=== PATIENT | female | born 1965 | race Caucasian/White ===

== ENCOUNTER → 2019-11-20 16:54 | Outpatient (CLI) | payer OTHER, BC, SELFPAY ==
--- NOTE | ~2019-11-20 | XR_ITS ---
EXAMINATION: XR knee LT 2V DATE: 11/20/2019 17:09 INDICATION: Left knee pain. TECHNIQUE: 2 views of left knee were obtained. COMPARISON: None. FINDINGS: Bone alignment is normal. No fracture. Joint spaces are normal. There is a small knee joint effusion. IMPRESSION: 1. Small left knee joint effusion. Reviewed, dictated and finalized at location A. [employer]
== END ==
PROVIDERS: PCP Family Medicine; Visit Provider Family Medicine
DX: M25.462 Effusion, left knee (principal)
CPT/HCPCS: 73560

== ENCOUNTER → 2021-03-26 12:57 | Outpatient (CLI) | payer OTHER, BC, SELFPAY ==
--- NOTE | ~2021-03-26 | MM_ITS ---
EXAMINATION: MM screening [facility] BI w daphnie HISTORY: Screening TECHNIQUE: Craniocaudal and mediolateral oblique 3-D tomosynthesis images were obtained and synthetic 2-D images were generated. CAD analysis was submitted and interpreted. COMPARISON: Comparison to multiple prior studies sequentially, with oldest reviewed study dated 12/14. BREAST PARENCHYMAL COMPOSITION: There are scattered areas of fibroglandular density. FINDINGS: Stable benign-appearing left breast mass in the upper outer quadrant. There is no evidence of suspicious mass, calcification, or architectural distortion to suggest malignancy in either breast . There has been no suspicious interval change. IMPRESSION: 1. No mammographic evidence of malignancy. 2. Recommend routine screening mammography in one year. BI-RADS Category 2: Benign finding(s). Reviewed, dictated and finalized at location A.
== END ==
PROVIDERS: PCP Family Medicine
DX: Z12.31 Encounter for screening mammogram for malignant neoplasm of breast (principal)
CPT/HCPCS: 77063; 77067

== ENCOUNTER → 2021-04-21 00:36 | Outpatient (CLI) | payer OTHER, BC, SELFPAY ==
[2021-04-21 20:36] LABS: SARS-CoV-2 RNA PCR Negative
== END ==
PROVIDERS: PCP Family Medicine; Visit Provider Internal Medicine Gastroenterology
DX: Z01.812 Encounter for preprocedural laboratory examination (principal); Z20.822 Contact with and (suspected) exposure to COVID-19
CPT/HCPCS: C9803; U0003; U0005

== ENCOUNTER 2021-04-24 00:31 | Day surgery (SDC) | payer OTHER, BC, SELFPAY ==
[2021-04-08 14:46] VITALS: BMI 32.5
[2021-04-24 06:54] VITALS: BP 117/78; PULSE 77; RESP 18; TEMP 36.4; O2SAT 95
[2021-04-24] MEDS: LACTATED RINGERS 1,000 ML 150 ML IV CONT (07:05)
--- NOTE | 2021-04-24 07:26 | PM.HPGS ---
History of Present Illness History of Present Illness Consent: Risks, benefits, and alternatives have been discussed and questions answered. Patient agrees to proceed with procedure. Chief complaint: change in bowel habits, Rectal Bleeding Narrative: Tiffany Adams is a 55 year old female with a change in bowel habits. She also has seen blood in her stools lately. Times her stools are very soft and she needs to wipe repeatedly. Review of Systems Review of Systems: All systems reviewed & are unremarkable except as noted in HPI and below PMFSH Past Medical History Medical History Chronic renal insufficiency, stage III (moderate) Depression Hematochezia Hypertension Hypothyroidism Surgical History Surgical History H/O hernia repair Family History Family History Mother Colon polyp Hypertension Migraines Brain aneurysm Father Acute myocardial infarction Hypothyroidism Other Diabetes mellitus Family history of allergic disorder Family history of malignant neoplasm Family history of tuberculosis Social History Social History Smoking packs per day: 1 Smoking cigarettes per day: 20.0 Years smoked: 37 Smoking pack-years: 37.00 Smoking status: Former smoker Tobacco type: cigarettes Second hand tobacco smoke exposure: No Smoking end date: 04/25/18 Alcohol intake: current Alcohol use details: socially Substance use: never Substance use type: does not use Living arrangements: with family Gender identity (if verbalized by the patient): Female Spiritual care concerns: No Meds Home Medications and Allergies Home Medications Medication Instructions Recorded Confirmed Type amlodipine 5 mg tablet 5 mg PO DAILY 08/29/19 04/24/21 History norethindrone acetate 5 mg tablet 5 mg PO DAILY 08/29/19 04/24/21 History diclofenac sodium 1 % topical gel See Rx Instructions .ROUTE 01/23/20 04/24/21 Rx .COMPLEX #100 gm simvastatin 20 mg tablet 20 mg PO DAILY #90 tablet 06/16/20 04/24/21 Rx escitalopram oxalate 20 mg tablet 20 mg PO DAILY #90 tablet 08/12/20 04/24/21 Rx solifenacin 5 mg tablet 5 mg PO DAILY #90 tablet 09/01/20 04/24/21 Rx albuterol sulfate 90 mcg/actuation 1 puff INHALATION Q4H PRN #18 g 10/03/20 04/24/21 Rx aerosol inhaler cetirizine 5 mg tablet 5 mg PO DAILY PRN 02/11/21 04/24/21 History multivitamin 1 tablet PO DAILY 02/11/21 04/24/21 History levothyroxine 50 mcg PO DAILY 04/08/21 04/24/21 History Allergies Allergy/AdvReac Type Severity Reaction Status Date / Time No Known Allergies Allergy Verified 04/24/21 06:49 Vital Signs Vital Signs - 24 hr 04/24/21 06:54 Temperature 36.4 C Pulse Rate 77 Respiratory Rate 18 Blood Pressure 117/78 Pulse Oximetry 95 Exam Resp: Auscultation: clear to auscultation bilaterally Cardio: Rate: regular rate Rhythm: regular rhythm GI: GI Palp: Yes Soft to palpation and No Tenderness to palpation present (GI) Assessment and Plan Assessment and plan (1) Blood in stool: Code(s): K92.1 - Melena Status: Acute Assessment and Plan: Colonoscopy with possible biopsy or polypectomy or cautery or injection of substances.
--- NOTE | 2021-04-24 07:48 | WPDANESEPPF ---
Anes - Initial Pre Proc Eval Procedure: Operation Date: 04/24/21 08:00 Proposed Procedures p Colonoscopy - Miguel Angel Maria MD Date/Time: 04/24/21 07:48 Surgeon: Miguel Angel Maria MD Pre Op Diagnosis: change in bowel habits, Rectal Bleeding Patient Data Age: 55 Gender: F Height: 1.63 m Weight: 83.3 kg Last Vital Signs Temp 97.6 F 04/24/21 06:54 Pulse 77 04/24/21 06:54 Resp 18 04/24/21 06:54 BP 117/78 04/24/21 06:54 Pulse Ox 95 04/24/21 06:54 Allergies Allergy/AdvReac Type Severity Reaction Status Date / Time No Known Allergies Allergy Verified 04/24/21 06:49 Home Medications Medication Instructions Recorded Confirmed Type amlodipine 5 mg tablet 5 mg PO DAILY 08/29/19 04/24/21 History norethindrone acetate 5 mg tablet 5 mg PO DAILY 08/29/19 04/24/21 History diclofenac sodium 1 % topical gel See Rx Instructions .ROUTE 01/23/20 04/24/21 Rx .COMPLEX #100 gm simvastatin 20 mg tablet 20 mg PO DAILY #90 tablet 06/16/20 04/24/21 Rx escitalopram oxalate 20 mg tablet 20 mg PO DAILY #90 tablet 08/12/20 04/24/21 Rx solifenacin 5 mg tablet 5 mg PO DAILY #90 tablet 09/01/20 04/24/21 Rx albuterol sulfate 90 mcg/actuation 1 puff INHALATION Q4H PRN #18 g 10/03/20 04/24/21 Rx aerosol inhaler cetirizine 5 mg tablet 5 mg PO DAILY PRN 02/11/21 04/24/21 History multivitamin 1 tablet PO DAILY 02/11/21 04/24/21 History levothyroxine 50 mcg PO DAILY 04/08/21 04/24/21 History Patient hx anesthesia problems: none Family hx anesthesia problems: none PMFSH Past Medical History Medical History Chronic renal insufficiency, stage III (moderate) Depression Hematochezia Hypertension Hypothyroidism Surgical History Surgical History H/O hernia repair Family History Family History Mother Colon polyp Hypertension Migraines Brain aneurysm Father Acute myocardial infarction Hypothyroidism Other Diabetes mellitus Family history of allergic disorder Family history of malignant neoplasm Family history of tuberculosis Social History Social History Smoking packs per day: 1 Smoking cigarettes per day: 20.0 Years smoked: 37 Smoking pack-years: 37.00 Smoking status: Former smoker Tobacco type: cigarettes Second hand tobacco smoke exposure: No Smoking end date: 04/25/18 Alcohol intake: current Alcohol use details: socially Substance use: never Substance use type: does not use Living arrangements: with family Gender identity (if verbalized by the patient): Female Spiritual care concerns: No Anes - Eval Final PreProcedure Day of Procedure 04/24/21 07:48 Patient weight: overweight Heart: regular rate and rhythm Lungs: clear to auscultation Airway: Mallampati scale class II Neurological: alert and oriented Last oral intake: >/= 8 hours ASA classification: III Emergent: no Anesthetic plan: proceed Anesthesia type and monitoring: general GIVS and standard monitoring Informed Consent: The patient's anesthetic plan and its attendant risks and benefits were discussed with the patient/family/POA. Questions were solicited and answers provided to the satisfaction of the patient/family/POA.
[2021-04-24 08:14] VITALS: BP 96/61; PULSE 66; RESP 20; O2SAT 97
[2021-04-24 08:24] VITALS: BP 108/73; PULSE 66; RESP 20; O2SAT 97
[2021-04-24 08:34] VITALS: BP 120/73; PULSE 60; RESP 20; O2SAT 98
== END 2021-04-24 08:48 | disposition home or self-care (01) ==
PROVIDERS: PCP Family Medicine; Visit Provider Internal Medicine Gastroenterology
PROC: 0DJD8ZZ Inspection of Lower Intestinal Tract, Via Natural or Artificial Opening Endoscopic (ICD-10-PCS; CPT 45378; principal; 2021-04-24 08:00)
DX: K92.1 Melena (principal); R19.4 Change in bowel habit; K64.4 Residual hemorrhoidal skin tags; K64.8 Other hemorrhoids; K63.5 Polyp of colon; Z79.51 Long term (current) use of inhaled steroids; F32.9 Major depressive disorder, single episode, unspecified; E03.9 Hypothyroidism, unspecified; I12.9 Hypertensive chronic kidney disease with stage 1 through stage 4 chronic kidney disease, or unspecified chronic kidney disease; N18.30 Chronic kidney disease, stage 3 unspecified; Z87.891 Personal history of nicotine dependence
CPT/HCPCS: 45385; 45381; 45380; 88305; C9803; J2370; J2704; J7120; U0003; U0005

== ENCOUNTER 2021-06-30 09:37 | Outpatient (CLI) | payer OTHER, BC, SELFPAY ==
--- NOTE | 2021-06-30 11:09 | ECG_ITS ---
Measurements Intervals [place] Rate: 68 P: 64 CO: 170 QRS: 42 QRSD: 82 T: 44 QT: 389 QTc: 415 Interpretive Statements SINUS RHYTHM POSSIBLE LEFT ATRIAL ENLARGEMENT BASELINE ARTIFACT- I, II, III, AVR, AVL, AVF, V1-V3 BORDERLINE ECG Electronically Signed On 06-30-2021 11:48:12 CDT by Trevor Mejia D.O.
[2021-06-30 11:27] LABS: Hematocrit 45.4 % (37.0-47.0)
[2021-06-30 11:47] LABS: INR 0.9; Prothrombin Time 11.9 Seconds (11.1-14.7)
[2021-06-30 11:48] LABS: Anion Gap 10 mmol/L (8-16); Blood Urea Nitrogen 23 mg/dL (7-17); Calcium 10.4 mg/dL (8.4-10.2); Carbon Dioxide 30 mmol/L (22-30); Chloride 104 mmol/L (98-107); Estimated Glomerular Filt Rate 42; Glucose 108 mg/dL (65-110); Partial Thromboplastin Time 28.6 SECONDS (22.3-36.8); Potassium 4.1 mmol/L (3.4-5.0); Sodium 144 mmol/L (137-145)
== END 2021-06-30 09:38 | disposition home or self-care (01) ==
LOC: ANHSURGERY 09:42
PROVIDERS: Anesthesiology; PCP Family Medicine; Visit Provider Surgery
DX: Z01.818 Encounter for other preprocedural examination (principal); K63.5 Polyp of colon; I10 Essential (primary) hypertension
CPT/HCPCS: 36415; 80048; 85014; 85018; 85610; 85730; 86850; 86900; 86901; 93005

== ENCOUNTER 2021-07-06 16:00 | Inpatient (IN) | payer OTHER, BC, SELFPAY ==
[2021-06-30 10:10] VITALS: BP 128/83; PULSE 81; RESP 18; TEMP 37.5; O2SAT 96; BMI 31.1
[2021-07-06] VITALS (15 sets, daily range): BP systolic 86–127; BP diastolic 48–74; PULSE 68–84; RESP 14–20; TEMP 36.2–37.1; O2SAT 90–100
[2021-07-06] MEDS: ACETAMINOPHEN 500 MG TABLET 1000 MG PO ×2 (10:10→18:24)
[2021-07-06] MEDS: LACTATED RINGERS 1,000 ML 30 ML IV CONT ×2 (10:32→14:20)
[2021-07-06] MEDS: KETOROLAC 15 MG/ML VIAL (*BKC) IV PUSH (10:33)
--- NOTE | 2021-07-06 11:20 | PM.IMHP ---
H&P: HPI History of Present Illness Date/Time: 07/06/21 11:20 Chief Complaint: Cecal polyp Narrative: 56 yo woman presents for right hemicolectomy. She recently had a colonoscopy and a large polyp was identified. This was too large to remove endoscopically so she now is presenting for surgical resection. Review of Systems Review of Systems: All systems reviewed & are unremarkable except as noted in HPI and below Constitutional: Constitutional: Denies chills, Denies fever(s), Denies headache(s) and Denies weight loss Eyes: Eyes: Denies change in vision ENT: Denies dizziness, Denies headache(s), Denies neck mass and Denies throat swelling Cardiovascular: Cardiovascular: Denies chest pain, Denies lightheadedness and Denies dyspnea Respiratory: Respiratory: Denies cough, Denies dyspnea and Denies wheezing Gastrointestinal: Gastrointestinal: Denies abdominal pain, Denies change in bowel habits, Denies nausea and Denies vomiting Genitourinary: Genitourinary: Denies hematuria and Denies dysuria Musculoskeletal: Musculoskeletal: Reports as per HPI Integumentary/Breasts: Skin/Breast: Reports as per HPI Neurologic: Denies dizziness and Denies headache(s) Allergic/Immunologic: Allergic/Immunologic: Denies throat swelling and Denies wheezing PMFSH Past Medical History Medical History Asthma Chronic renal insufficiency, stage III (moderate) Depression Hematochezia High cholesterol History of blood transfusion Hypertension Hypothyroidism Surgical History Surgical History H/O hernia repair S/P cataract extraction S/P excision of lipoma Family History Family History Mother Colon polyp Hypertension Migraines Brain aneurysm Father Acute myocardial infarction Hypothyroidism Other Diabetes mellitus Family history of allergic disorder Family history of malignant neoplasm Family history of tuberculosis Social History Social History Smoking packs per day: 1 Smoking cigarettes per day: 20.0 Years smoked: 30 Smoking pack-years: 30.00 Smoking status: Former smoker Tobacco type: cigarettes Second hand tobacco smoke exposure: No Smoking end date: 04/25/18 Alcohol intake: current Alcohol use details: socially Substance use: never Substance use type: does not use Living arrangements: with family Additional living arrangements comments: HUSB AND SON Gender identity (if verbalized by the patient): Female Spiritual care concerns: No Meds Home Medications and Allergies Home Medications Medication Instructions Recorded Confirmed Type amlodipine 5 mg tablet 5 mg PO QAM 08/29/19 07/06/21 History multivitamin 1 tablet PO DAILY 02/11/21 07/06/21 History levothyroxine 50 mcg PO QAM 04/08/21 07/06/21 History albuterol sulfate [Ventolin HFA] 2 puff INHALATION Q4H PRN 06/30/21 06/30/21 History cetirizine [Zyrtec] 10 mg PO DAILY 06/30/21 07/06/21 History diclofenac sodium 1 ea TOPICAL QID PRN 06/30/21 07/06/21 History escitalopram oxalate [Lexapro] 20 mg PO QAM 06/30/21 07/06/21 History omeprazole 20 mg PO DAILY 06/30/21 07/06/21 History simvastatin 20 mg PO QAM 06/30/21 07/06/21 History solifenacin [Vesicare] 5 mg PO QAM 06/30/21 07/06/21 History Allergies Allergy/AdvReac Type Severity Reaction Status Date / Time No Known Allergies Allergy Verified 07/06/21 10:11 Vital Signs Vital Signs - 24 hr 07/06/21 10:45 Temperature 37.1 C Pulse Rate 68 Respiratory Rate 16 Blood Pressure 101/62 Pulse Oximetry 94 Exam Const: General: no acute distress and alert Orientation/consciousness: patient oriented x3 HENMT: Head: normocephalic and atraumatic Ears: hearing grossly normal bilaterally General nose exam: Normal nares present
--- NOTE | 2021-07-06 11:22 | WPDHPUPDATE1 ---
History and Physical Update Update Date/Time: 07/06/21 11:22 History and Physical has been reviewed, including an updated exam of the patient. There are NO changes in the patient's condition. Risks, benefits, and alternatives have been discussed and questions answered. Patient agrees to proceed with procedure.
--- NOTE | 2021-07-06 11:44 | WPDANESEPPF ---
Anes - Initial Pre Proc Eval Procedure: Operation Date: 07/06/21 12:00 Proposed Procedures p Hand Assisted Laparoscopic Hemicolectomy - Ramos Wallace DO Date/Time: 07/06/21 11:44 Surgeon: Ramos Wallace DO Pre Op Diagnosis: Cecal polyp Patient Data Age: 56 Gender: F Height: 1.63 m Weight: 81.8 kg Last Vital Signs Temp 37.1 C 07/06/21 10:45 Pulse 68 07/06/21 10:45 Resp 16 07/06/21 10:45 BP 101/62 07/06/21 10:45 Pulse Ox 94 07/06/21 10:45 Allergies Allergy/AdvReac Type Severity Reaction Status Date / Time No Known Allergies Allergy Verified 07/06/21 10:11 Home Medications Medication Instructions Recorded Confirmed Type amlodipine 5 mg tablet 5 mg PO QAM 08/29/19 07/06/21 History multivitamin 1 tablet PO DAILY 02/11/21 07/06/21 History levothyroxine 50 mcg PO QAM 04/08/21 07/06/21 History albuterol sulfate [Ventolin HFA] 2 puff INHALATION Q4H PRN 06/30/21 06/30/21 History cetirizine [Zyrtec] 10 mg PO DAILY 06/30/21 07/06/21 History diclofenac sodium 1 ea TOPICAL QID PRN 06/30/21 07/06/21 History escitalopram oxalate [Lexapro] 20 mg PO QAM 06/30/21 07/06/21 History omeprazole 20 mg PO DAILY 06/30/21 07/06/21 History simvastatin 20 mg PO QAM 06/30/21 07/06/21 History solifenacin [Vesicare] 5 mg PO QAM 06/30/21 07/06/21 History Patient hx anesthesia problems: none Family hx anesthesia problems: none Results Review: All pre-operative results and documents have been reviewed as part of the pre-operative evaluation. [facility] Past Medical History Medical History Asthma Chronic renal insufficiency, stage III (moderate) Depression Hematochezia High cholesterol History of blood transfusion Hypertension Hypothyroidism Surgical History Surgical History H/O hernia repair S/P cataract extraction S/P excision of lipoma Family History Family History Mother Colon polyp Hypertension Migraines Brain aneurysm Father Acute myocardial infarction Hypothyroidism Other Diabetes mellitus Family history of allergic disorder Family history of malignant neoplasm Family history of tuberculosis Social History Social History Smoking packs per day: 1 Smoking cigarettes per day: 20.0 Years smoked: 30 Smoking pack-years: 30.00 Smoking status: Former smoker Tobacco type: cigarettes Second hand tobacco smoke exposure: No Smoking end date: 04/25/18 Alcohol intake: current Alcohol use details: socially Substance use: never Substance use type: does not use Living arrangements: with family Additional living arrangements comments: HUSB AND SON Gender identity (if verbalized by the patient): Female Spiritual care concerns: No Anes - Eval Final PreProcedure Day of Procedure 07/06/21 11:44 Patient weight: obese Heart: regular rate and rhythm Lungs: decreased breath sounds Airway: Mallampati scale class II Neurological: alert and oriented Last oral intake: >/= 8 hours ASA classification: III Emergent: no Anesthetic plan: proceed Anesthesia type and monitoring: general ETT and standard monitoring Results Review: All pre-operative results and documents have been reviewed as part of the pre-operative evaluation. Informed Consent: The patient's anesthetic plan and its attendant risks and benefits were discussed with the patient/family/POA. Questions were solicited and answers provided to the satisfaction of the patient/family/POA.
[2021-07-06] MEDS: metroNIDAZOLE 500 MG/ISO 100ML 500 MG/100 ML BAG 100 MG IVPB (12:22)
[2021-07-06] MEDS: ceFAZolin 2 GM/D5W 50 ML 2 GM/50 ML BAG IVPB (12:34)
--- NOTE | 2021-07-06 14:25 | W.PM.PROC2 ---
Procedure Note - Detailed Date of Procedure 07/06/21 Pre-op Diagnosis Cecal polyp Post-op Diagnosis same Procedure Performed Hand assisted laparoscopic right hemicolectomy with ileocolic anastomosis Surgeon Ramos Wallace, DO Anesthesia general and local (Exparel) Indications This is a 56-year-old woman who presented with a large cecal polyp. She had blood in her stool and therefore underwent colonoscopy with Dr. Maria on 04/24/2021. A large cecal polyp was identified. This was biopsied and tattooed. Pathology showed evidence of tubulovillous adenoma. Discussions were made with the patient about treatment options and decision was made to proceed with hand assisted laparoscopic right hemicolectomy. Findings Hand assisted laparoscopic right hemicolectomy was performed. Patient had a prior history of epigastric hernia repair with mesh, therefore I chose to enter the abdomen laparoscopically in the left upper quadrant. There were many omental adhesions up to the old mesh. These adhesions were carefully taken down using LigaSure bipolar cautery. Once I was able to see the abdominal wall, I was then able to place my hand port in the periumbilical region. I did have to cut through the inferior edge of the mesh for a distance of about 3 cm. I then proceeded with right hemicolectomy. The tattooed region was identified right at the cecum. A high ligation of the ileocolic vessels was performed. A [id number] stapled ileocolic anastomosis was then performed. Description of Procedure Procedure as well as risks benefits and alternatives were explained to the patient. Written consent was obtained and placed in chart prior to procedure. Patient was brought back to surgical suite. She was placed supine on operating table. Time-out was done to confirm patient procedure. She was then intubated by the anesthesia department. Her abdomen was prepped and draped in sterile fashion using chlorhexidine prep. A 5 mm incision was made in the left upper quadrant and a 5 mm Optiview trocar was advanced through the abdominal layers under direct visualization. Once inside the abdominal cavity, carbon dioxide insufflation was used to create a pneumoperitoneum. The abdomen was inspected. There were adhesions throughout the entire mid abdomen, but the left lateral abdomen appeared free of adhesions. Another 5 mm incision was made in the left lower quadrant a 5 mm trocar was inserted under direct visualization. The omental adhesions were taken down carefully using LigaSure bipolar cautery. I was then able to identify the abdominal wall in the midline. A 7 centimeter vertical incision was made centered on the umbilicus using a 15 blade scalpel. Electrocautery was used for hemostasis and for dissection down through Christian's fascia. The linea alba was identified, and incised using electrocautery. Two Pamela clamps were used to lift the fascia anteriorly, and the peritoneum was then entered using electrocautery. The abdomen was inspected and no acute abnormalities were noted. The wound protector was placed at this incision, and the GelPort was applied. The tattooed region was identified on the cecum, and no other abnormalities were noted. The patient was placed in Trendelenburg position and rotated slightly to the left. A 5 millimeter incision was made in the lower midline and a 5 millimeter trocar was inserted under direct visualization. Another 5 millimeter incision was made in the left lower quadrant, and a 5 millimeter trocar was inserted under direct visualization. A transversus abdominis plane block with Exparel was performed under laparoscopic visualization bilaterally. After carefully inspecting the abdominal cavity, I began my dissection from a medial to lateral direction along the ileocolic pedicle. The cecum was tented anteriorly and laterally and this allowed me to visualize the ileocolic pedicle. The medial side and inferior side of the peritoneum was scored us
--- NOTE | 2021-07-06 14:37 | SUR.PHASEI ---
1428; DR GOSS IN PACU. SHOWED HIM PT'S ABDOMEN, ROUNDED BUT SOFT.
[2021-07-06] MEDS: LACTATED RINGERS 1,000 ML 100 ML IV CONT (18:24)
[2021-07-06] MEDS: MORPHINE SULFATE (*CRX) 2 MG/ML INJ IV PUSH (18:25)
--- NOTE | 2021-07-06 18:41 | ADMGEN ---
This patient, Tiffany Faith [facility], was admitted to 2 Medical Room 246-01. Patient/family oriented to hospital policies and general routines including ID bracelet, bed and alarms, visiting hours, pain management, procedures, bathroom and other care routines, personal items, smoking policy, room service/diet, and visiting hours. Information on how to activate the Rapid Response Team has been discussed. Patient/Family are encouraged to report perceived risks to care and to ask questions if they do not understand what they are told or what they should do.
[2021-07-07] VITALS (9 sets, daily range): BP systolic 82–111; BP diastolic 49–70; PULSE 60–78; RESP 18–20; TEMP 36.4–36.8; O2SAT 94–96
[2021-07-07] MEDS: ACETAMINOPHEN 500 MG TABLET 1000 MG PO ×3 (00:33→11:18)
[2021-07-07 05:49] LABS: Basophils Percent Auto 0.1 % (0.2-1.2); Hemoglobin 11.6 g/dL (12.0-15.0); Immature Granulocyte Absolute 0.06 K/mm3 (0.00-0.031); Immature Granulocyte Percent A 0.4 % (0-0.5); Lymphocytes Absolute Auto 1.15 K/mm3 (0.9-3.2); Lymphocytes Percent Auto 6.9 % (18.3-44.2); Mean Corpuscular HGB Conc 33.1 g/dl (32-36); Mean Corpuscular Hemoglobin 30.9 pg (26-34); Mean Corpuscular Volume 93.3 fl (80-100); Monocytes Absolute Auto 0.7 K/mm3 (0.1-0.6); Monocytes Percent Auto 4.2 % (2.6-8.5); Neutrophils Absolute Auto 14.7 K/mm3 (1.3-6.7); Neutrophils Percent Auto 88.4 % (45.5-73.1); Platelet Count Result 378 k/mm3 (150-375); Red Blood Count 3.75 M/mm3 (4.2-5.4); Red Cell Distribution Width 14.2 % (11.5-14.5); White Blood Count 16.6 K/mm3 (4.5-10.0)
[2021-07-07] MEDS: LEVOTHYROXINE SODIUM 50 MCG TABLET PO (06:05)
[2021-07-07] MEDS: LACTATED RINGERS 1,000 ML 100 ML IV CONT (06:06)
[2021-07-07] MEDS: SIMVASTATIN 20 MG TABLET PO (08:43)
[2021-07-07] MEDS: SOLIFENACIN 5 MG TABLET PO (08:43)
[2021-07-07] MEDS: PANTOPRAZOLE 40 MG TABLET PO (08:43)
[2021-07-07] MEDS: ESCITALOPRAM OXALATE 10 MG TABLET 20 MG PO (08:43)
[2021-07-07] MEDS: ENOXAPARIN 40 MG/0.4 ML SYRINGE SUB-Q (08:44)
--- NOTE | 2021-07-07 08:44 | PC.NURSE ---
Pt reports does not want to take B/P medications due to low BP throughout the night, Bp 102/70 this Am. will notify provider
[2021-07-07] MEDS: MORPHINE SULFATE (*CRX) 2 MG/ML INJ IV PUSH (08:58)
--- NOTE | 2021-07-07 09:03 | PC.NURSE ---
Shazia MOULTON in room notifed of refused B/P medication this Am. YESSIO
--- NOTE | 2021-07-07 09:54 | PM.PNGS ---
Progress Note: A&P Assessment and Plan (1) Cecal polyp: Code(s): K63.5 - Polyp of colon Status: Acute Assessment and Plan: POD#1 and doing well. Pain is controlled. Tolerating activity. Bowel function already seems to be returning. Will advance to full liquids. Add oral analgesics PRN for pain. Encouraged increasing activity and ambulating in the halls today. Encouraged IS use. Pathology pending. Repeat labs tomorrow. BMP still pending when rounding this morning? (2) Hypertension: Code(s): I10 - Essential (primary) hypertension Status: Chronic Assessment and Plan: BP 80/40's overnight. Improved this morning. Amlodipine held. BP now 102/70. Continue to monitor. (3) BMI 31.0-31.9,adult: Code(s): Z68.31 - Body mass index [BMI] 31.0-31.9, adult Status: Acute Subjective Subjective Date/Time Seen: 07/07/21 09:00 Post Op day: 1 (NORA right hemicolectomy) Patient reports: tolerating liquids well, voiding w/o difficulty, flatus, bowel movement (small amount of liquid brown stool this morning) and afebrile Interval history: This is a 56 yo female who presented for an elective NORA right hemicolectomy yesterday by Dr. Wallace after finding a large cecal polyp on colonoscopy, which showed on pathology to be tubulovillous adenoma. She was seen and examined this morning. She reports feeling well today. She has been getting up and using the bathroom through the night and this morning, ambulating independently. She reports being very hungry for breakfast and taking in the entire tray of clear liquids, she thinks too fast. Following this, she feels slightly bloated, but no nausea or vomiting. She is passing lots of flatus and has had some liquid stool pass this morning. Pain is well-controlled. No other complaints at this time. Blood pressure was slightly low through the night, which is better this morning. Per the nurse, the patient refused her Amlodipine this morning. Review of Systems Review of Systems: All systems reviewed & are unremarkable except as noted in HPI and below Constitutional: Constitutional: Reports as per HPI, Reports no additional constitutional complaints, Denies chills, Denies fever(s) and Denies headache(s) Cardiovascular: Cardiovascular: Reports no additional cardiovascular complaints, Denies chest pain and Denies leg edema Respiratory: Respiratory: Reports no additional respiratory complaints, Denies cough and Denies dyspnea Gastrointestinal: Gastrointestinal: Reports as per HPI and Reports no additional gastrointestinal complaints Neurologic: Reports system reviewed and no additional complaints, except as documented and Denies focal weakness Exam Const: General: comfortable, no acute distress, alert and awake Orientation/consciousness: patient oriented x3 Resp: Effort & Inspection: normal respiratory effort Auscultation: clear to auscultation bilaterally Cardio: Rate: regular rate Rhythm: regular rhythm GI: Inspection: incision (Abdominal incisions clean and dry, glue intact.) and other (mildly distended) GI Palp: Yes Soft to palpation, Yes Tenderness to palpation present (GI) (incisional) and No Guarding due to palpation present (GI) Auscultation: normal bowel sounds (good bowel sounds) Skin: General skin exam: normal color Neuro: General: moves all extremities and no focal motor deficits Extrem: General: no clubbing, cyanosis or edema and no calf tenderness Psych: Mental Status: mental status grossly normal Insight: Good insight present (Psych) Judgement: Good judgement present (Psych) Objective Data Vital Signs Vital Signs: Vital Signs - 24 hr 07/06/21 10:45 07/06/21 14:20 07/06/21 14:35 Temperature 98.8 F 97.1 F L Pulse Rate 68 79 84 Respiratory Rate 16 16 16 Blood Pressure 101/62 127/73 110/57 L Pulse Oximetry 94 100 99 07/06/21 14:50 07/06/21 15:05 07/06/21 15:20 Temperature Pulse Rate 84 77 78 Respiratory Rate 18 14 14 Blo
[2021-07-07 12:07] LABS: Anion Gap 7 mmol/L (8-16); Blood Urea Nitrogen 13 mg/dL (7-17); Calcium 9.1 mg/dL (8.4-10.2); Carbon Dioxide 26 mmol/L (22-30); Chloride 108 mmol/L (98-107); Estimated CRCL calculation 54 ml/min; Estimated Glomerular Filt Rate 51; Glucose 131 mg/dL (65-110); Potassium 4.8 mmol/L (3.4-5.0); Sodium 141 mmol/L (137-145)
[2021-07-07] MEDS: HYDROcodone/acetaminophen (*CRX) 5-325 MG TABLET 1 TAB PO (19:49)
[2021-07-08 04:28] VITALS: BP 114/61; PULSE 58; RESP 20; TEMP 36.2; O2SAT 95
[2021-07-08 05:39] LABS: Hematocrit 34.9 % (37.0-47.0); Hemoglobin 11.5 g/dL (12.0-15.0); Mean Corpuscular Hemoglobin 31.3 pg (26-34); Mean Corpuscular Volume 94.8 fl (80-100); Mean Platelet Volume 9.3 fl (7.4-10.4); Platelet Count Result 356 k/mm3 (150-375); Red Blood Count 3.68 M/mm3 (4.2-5.4); Red Cell Distribution Width 14.1 % (11.5-14.5); White Blood Count 10.1 K/mm3 (4.5-10.0)
[2021-07-08 05:56] LABS: Anion Gap 5 mmol/L (8-16); Blood Urea Nitrogen 10 mg/dL (7-17); Carbon Dioxide 32 mmol/L (22-30); Chloride 106 mmol/L (98-107); Estimated CRCL calculation 54 ml/min; Estimated Glomerular Filt Rate 51; Glucose 93 mg/dL (65-110); Potassium 3.7 mmol/L (3.4-5.0); Sodium 143 mmol/L (137-145)
[2021-07-08] MEDS: HYDROcodone/acetaminophen (*CRX) 5-325 MG TABLET 1 TAB PO (06:11)
[2021-07-08] MEDS: LEVOTHYROXINE SODIUM 50 MCG TABLET PO (06:11)
[2021-07-08] MEDS: ENOXAPARIN 40 MG/0.4 ML SYRINGE SUB-Q (08:10)
[2021-07-08] MEDS: PANTOPRAZOLE 40 MG TABLET PO (08:10)
[2021-07-08] MEDS: ESCITALOPRAM OXALATE 10 MG TABLET 20 MG PO (08:10)
[2021-07-08] MEDS: amLODIPine BESYLATE 5 MG TABLET PO (08:10)
[2021-07-08] MEDS: SOLIFENACIN 5 MG TABLET PO (08:10)
[2021-07-08] MEDS: SIMVASTATIN 20 MG TABLET PO (08:10)
--- NOTE | 2021-07-08 09:37 | PM.DS ---
DS: Admitting Diagnosis Discharge Date 07/08/21 Admitting Diagnosis Cecal polyp Hypertension Hypothyroidism Obesity BMI 31-32 DS: Discharge Diagnosis Discharge Diagnosis (1) Tubulovillous adenoma: Code(s): D36.9 - Benign neoplasm, unspecified site Status: Acute Assessment and Plan: 07/06/21 - Hand assisted laparoscopic right hemicolectomy with ileocolic anastomosis - by Dr. Wallace (2) Hypertension: Code(s): I10 - Essential (primary) hypertension Status: Chronic (3) Hypothyroidism: Code(s): E03.9 - Hypothyroidism, unspecified Status: Chronic (4) BMI 31.0-31.9,adult: Code(s): Z68.31 - Body mass index [BMI] 31.0-31.9, adult Status: Acute DS: Summary Hospital Course Reason for hospitalization: 56 yo woman presented for right hemicolectomy. She recently had a colonoscopy and a large polyp was identified. This was too large to remove endoscopically so she was seen in our office and was scheduled for surgical resection. Hospital Course: The patient underwent a NORA right hemicolectomy by Dr. Wallace on 07/06/21 for the above reasons. No immediate complications. She was recovered and transferred to the medical floor. She was slowly advanced on her diet and tolerated this well. Bowel function returned on post-op day 1. Labs were followed post-operatively. Her hemoglobin dropped after surgery to 11.6 with pre-op labs showing a hemoglobin of 15. She had minimal blood loss during surgery, was hemodynamically stable, and had no signs of active bleeding. This was monitored and the following day her hemoglobin remained the same. Suspect this is mostly dilutional. On post-op day, she was tolerating a diet, voiding without issues, tolerating activity, and bowels were moving. She was stable for discharge. All instructions were discussed in detail. Pathology was pending on discharge but will be discussed with the patient in follow-up. Status at Discharge Functional status at discharge: independent ambulation Overall status at discharge: patient is progressing back to baseline Time Spent with Patient Time attestation: Total time spent providing and/or coordinating discharge services: Time spent: Less than 30 minutes Exam Const: General: comfortable, no acute distress, alert and awake Orientation/consciousness: patient oriented x3 Resp: Effort & Inspection: normal respiratory effort Auscultation: clear to auscultation bilaterally Cardio: Rate: regular rate Rhythm: regular rhythm GI: Inspection: non-distended and incision (Abdominal incisions clean and dry, glue intact.) GI Palp: Yes Soft to palpation, Yes Tenderness to palpation present (GI) (incisional) and No Guarding due to palpation present (GI) Auscultation: normal bowel sounds Skin: General skin exam: normal color Neuro: General: moves all extremities and no focal motor deficits Extrem: General: no clubbing, cyanosis or edema and no calf tenderness Psych: Mental Status: mental status grossly normal Insight: Good insight present (Psych) Judgement: Good judgement present (Psych) DS: Data Data Completed and Pending Pending studies at discharge: Pending at discharge 07/06/21 13:56 Surgical [PTH] Routine Labs on day of discharge: Labs from last 24 hours 07/08/21 07/08/21 07/07/21 05:17 05:17 05:37 WBC 10.1 H RBC 3.68 L Hgb 11.5 L Hct 34.9 L MCV 94.8 MCH 31.3 MCHC 33.0 RDW 14.1 Plt Count 356 MPV 9.3 Sodium 143 141 Potassium 3.7 4.8 Chloride 106 108 H Carbon Dioxide 32 H 26 Anion Gap 5 L 7 L BUN 10 13 D Creatinine 1.10 H 1.10 H Estim Creat Clear Calc 54 54 Estimated GFR 51 L 51 L Glucose 93 131 H Calcium 9.0 9.1 Discharge Plan Discharge Attending physician on discharge: Ramos Wallace Discharging Clinician: Shazia Hayden Anticipated Discharge Date/Time: 07/08/21 13:00 Patient Disposition: Home, Self-Care
== END 2021-07-08 13:10 | disposition home or self-care (01) | DRG 331 ==
LOC: ANH2MED 16:13
PROVIDERS: Admitting Provider Surgery; PCP Family Medicine; Visit Provider Nurse Practitioner Family
PROC: 0DTF4ZZ Resection of Right Large Intestine, Percutaneous Endoscopic Approach (ICD-10-PCS; CPT 44204; principal; 2021-07-06 12:00)
DX: D12.0 Benign neoplasm of cecum (principal); J45.909 Unspecified asthma, uncomplicated; I12.9 Hypertensive chronic kidney disease with stage 1 through stage 4 chronic kidney disease, or unspecified chronic kidney disease; N18.30 Chronic kidney disease, stage 3 unspecified; E03.9 Hypothyroidism, unspecified; E78.00 Pure hypercholesterolemia, unspecified; E66.9 Obesity, unspecified; Z68.31 Body mass index [BMI] 31.0-31.9, adult; Z79.899 Other long term (current) drug therapy; Z87.891 Personal history of nicotine dependence; Z98.49 Cataract extraction status, unspecified eye
CPT/HCPCS: 36415; 80048; 85025; 85027; 88309; A9270; C9290; J0690; J1100; J1170; J1650; J1885; J2250; J2270; J2405; J2704; J2710; J3010; J7030; J7120

== ENCOUNTER → 2022-09-08 15:58 | Outpatient (CLI) | payer OTHER, SELFPAY ==
--- NOTE | ~2022-09-08 | XR_ITS ---
EXAM: XR cervical spine min 6V DATE: 09/08/2022 17:14 HISTORY: M54.12 - Radiculopathy, cervical region . COMPARISON: 03/01/2016. FINDINGS: Craniocervical association and atlantoaxial joint are aligned. No prevertebral soft tissue swelling. Trace retrolistheses at C3-4 and C4-5 that reduces in flexion. Minimal retrolistheses at C 5-6 and C6-7 that are stable in flexion and extension. Moderate loss of disc height and marginal oste ophytosis at C5-6 and C6-7. Mild multilevel facet hypertrophy and sclerosis. Mild bilateral neural fo raminal narrowing at C3-4. Severe neural foraminal narrowing on the left at C5-6 and C6-7. IMPRESSION: Mild, grade 1 dynamic listheses at C3-4 and C4-5. Stable mild grade 1 retrolistheses at C 5-6 and C6-7. Moderate degenerative disc disease at C5-6 and C6-7. Multilevel neural foraminal narrow ing, detailed above. Reviewed, dictated and finalized at location K. MILL OPERATOR IMPRESSION: Mild, grade 1 dynamic listheses at C3-4 and C4-5. Stable mild grade 1 retrolistheses at C5-6 and C6-7. Moderate degenerative disc disease at C5-6 and C6-7. Multilevel neural foraminal narrowing, detailed above.
== END ==
PROVIDERS: PCP Family Medicine; Visit Provider Physician Assistant
DX: M54.12 Radiculopathy, cervical region (principal); M50.323 Other cervical disc degeneration at C6-C7 level
CPT/HCPCS: 72052

== ENCOUNTER 2024-02-10 15:58 | Outpatient (CLI) | payer OTHER, SELFPAY ==
--- NOTE | ~2024-02-10 | MM_ITS ---
EXAMINATION: MM screening serjio BI w daphnie HISTORY: Screening mammogram TECHNIQUE: Craniocaudal and mediolateral oblique 3-D tomosynthesis images were obtained and synthetic 2-D images were generated. CAD analysis was submitted and interpreted. COMPARISON: 03/26/2021, 08/02/2018 bilateral screening mammogram examinations BREAST PARENCHYMAL COMPOSITION: The breasts are almost entirely fatty. FINDINGS: There is no evidence of suspicious mass, calcification, or architectural distortion to sugg est malignancy in either breast. There has been no suspicious interval change. IMPRESSION: 1. No mammographic evidence of malignancy. 2. Recommend routine screening mammography in one year. BI-RADS Category 1: Negative Reviewed, dictated and finalized at location B.
== END 2024-02-10 15:59 ==
LOC: MICIMG 15:59
PROVIDERS: PCP Family Medicine
DX: Z12.31 Encounter for screening mammogram for malignant neoplasm of breast (principal)
CPT/HCPCS: 77063; 77067

== ENCOUNTER 2024-05-10 15:02 | Outpatient (CLI) | payer OTHER, SELFPAY ==
--- NOTE | 2024-05-10 15:06 | ECG_ITS ---
Test Date: 2024-05-10 15:13:29 Measurements Intervals [place] Rate: 66 P: 66 [place]: 177 QRS: 77 QRSD: 84 T: 60 QT: 379 QTc: 397 Interpretive Statements SINUS RHYTHM NORMAL ECG No previous ECG available for comparison Electronically Signed On 05-11-2024 14:37:52 CDT by Keith Omer M.D.
== END 2024-05-10 15:03 | disposition home or self-care (01) ==
LOC: ANHCARD 15:03
PROVIDERS: PCP Family Medicine; Visit Provider Family Medicine
DX: I10 Essential (primary) hypertension (principal)
CPT/HCPCS: 93005

== ENCOUNTER 2024-09-20 11:49 | Outpatient (CLI) | payer OTHER, SELFPAY ==
[2024-09-20 13:03] LABS: Anion Gap 1 mmol/L (4-12); Blood Urea Nitrogen 17 mg/dL (7-17); Calcium 9.4 mg/dL (8.4-10.2); Carbon Dioxide 31 mmol/L (22-30); Chloride 111 mmol/L (98-107); Estimated Glomerular Filt Rate 46; Glucose 99 mg/dL (65-110); Potassium 4.5 mmol/L (3.4-5.0); Sodium 143 mmol/L (137-145)
[2024-09-20 13:12] LABS: INR 0.9; Prothrombin Time 12.4 Seconds (11.1-14.7)
[2024-09-20 13:13] LABS: Partial Thromboplastin Time 27.9 Seconds (22.3-36.8)
== END 2024-09-20 11:50 | disposition home or self-care (01) ==
PROVIDERS: Anesthesiology; PCP Family Medicine; Visit Provider Podiatrist Foot & Ankle Surgery
DX: N18.30 Chronic kidney disease, stage 3 unspecified (principal); Z01.818 Encounter for other preprocedural examination
CPT/HCPCS: 36415; 80048; 85610; 85730

== ENCOUNTER 2024-09-28 00:20 | Day surgery (SDC) | payer OTHER, SELFPAY ==
[2024-09-17 10:07] VITALS: BMI 28.3
--- NOTE | 2024-09-17 10:08 | PC.NURSE ---
Report to the Outpatient Waiting Room, entrance under the green pavilion located off [facility], at time _0900_ on date _[id number]_. Planned Procedure Time: _1100_.? Time changes happen often and if your time is changed the preop area will call you the afternoon before. - You and your visitor will be asked to self-screen and do not enter if you have any COVID symptoms. Please call surgeon if you need to reschedule. - A mask is optional within the hospital at this time. Patients may have clear liquids (water, carbonated beverages, clear teas, apple juice) until 3 hours prior to surgery with a maximum of 20 ounces. - No food from midnight until time of surgery and no smoking. This includes no chewing gum, candy or mints. Take only the following medications with a SIP of water on the morning of surgery: ___Venlafaxine, Levothyroxine and if needed may use inhaler. DO NOT STOP ANY OF YOUR OTHER PRESCRIPTION MEDICATIONS PRIOR TO SURGERY EXCEPT THE FOLLOWING Medications to discontinue per physician Multivitamin Date to take last uhtc____[phone]____ Please no make-up, nail ukrainian, hairspray, perfume, deodorant, or body powder the day of surgery.? No jewelry (including any body piercings) or valuables the day of surgery, leave them at home.? Please take a shower or bath the night before, or the morning of, surgery with an antibacterial soap.? Wear comfortable, loose fitting clothing.? - Jewelry must be removed prior to entering the operating room.? Rings and piercings that are not removed may be cut off. - The hospital will not accept responsibility for valuables.? - Please leave all valuables, including medications, at home the day of surgery. If you are going home after surgery, a licensed delivery driver/customer service must drive you home.? - NO public transportation without another adult if you receive anesthesia. - We recommend that an adult stay with you for 24 hours following discharge. - We also recommend that you do not drive, make important decision, drink alcoholic beverages, or take any drugs that were not prescribed by your health care provider for at least 24 hours after your discharge time. Follow any additional instructions given to you from your surgeon. Telephone instructions given to __Joyce__and asked if any additional questions and then verbalized understanding. Patient advised to call surgeon office or pre surgery nurse liaison [phone] if any additional questions.
--- NOTE | 2024-09-27 14:33 | P.PNAN_ITS ---
Anes - Initial Pre Proc Eval Procedure: Operation Date: 09/28/24 11:00 Proposed Procedures p Arthrodesis First Metatarsal Phalangeal Joint Right Foot - Shivam Connell Jr., DPM Date/Time: 09/27/24 14:33 Surgeon: Shivam Connell Jr., DPM Pre Op Diagnosis: Bunion Right Foot Patient Data Age: 59 Gender: F Height: 1.63 m Weight: 75 kg Allergies Allergy/AdvReac Type Severity Reaction Status Date / Time No Known Allergies Allergy Verified 09/28/24 09:09 Home Medications ?Medication ?Instructions ?Recorded ?Confirmed ?Type multivitamin (Daily Multi-Vitamin 1 tablet PO DAILY 02/11/21 09/28/24 History tablet) cetirizine 10 mg capsule (Zyrtec) 10 mg PO DAILY 06/30/21 09/17/24 History diclofenac sodium 1 % topical gel 1 ea topical QID PRN Pain 06/30/21 09/17/24 History losartan 25 mg tablet 25 mg PO DAILY #90 tabs 03/14/24 09/28/24 Rx albuterol sulfate 90 mcg/actuation See Rx Instructions .Route 04/04/24 09/17/24 Rx aerosol inhaler .COMPLEX #8.5 grams simvastatin 20 mg tablet 20 mg PO QAM #90 tabs 04/04/24 09/17/24 Rx venlafaxine 150 mg 150 mg PO DAILY #90 caps 06/05/24 09/28/24 Rx capsule,extended release 24 hr famotidine 40 mg tablet 40 mg PO DAILY #90 tabs 07/31/24 09/17/24 Rx levothyroxine 50 mcg tablet 50 mcg PO QAM #90 tabs 08/28/24 09/28/24 Rx solifenacin 10 mg tablet (Vesicare) 10 mg PO DAILY #90 tabs 09/13/24 09/17/24 Rx Patient hx anesthesia problems: none Family hx anesthesia problems: none Results Review: All pre-operative results and documents have been reviewed as part of the pre- operative evaluation. [facility] Past Medical History Medical History High cholesterol Asthma History of blood transfusion Hematochezia Chronic renal insufficiency, stage III (moderate) Hypertension Depression Hypothyroidism Surgical History Surgical History History of right hemicolectomy 07/06/21 S/P cataract extraction S/P excision of lipoma H/O hernia repair Family History Family History Mother Colon polyp Hypertension Migraines Brain aneurysm Father Acute myocardial infarction Hypothyroidism Other Diabetes mellitus Family history of allergic disorder Family history of malignant neoplasm Family history of tuberculosis Social History Social History Smoking packs per day: 1 Smoking cigarettes per day: 20.0 Years smoked: 30 Smoking pack-years: 30.00 Smoking status: Former smoker Tobacco type: cigarettes Second hand tobacco smoke exposure: No Smoking end date: 04/25/18 Alcohol intake: current Drinks per week: 4 Alcohol use details: socially Substance use: never Substance use type: does not use Lack of Transportation: No Lack of Food: Never True Current Housing: I Have Housing Concerned About Future Housing: No Difficulty Paying Gas/Electric Bills: No Difficulty Paying for Meds: No Currently Unemployed: No Education: High School Diploma/GED Difficulty w/ Childcare or Family Care: No Living arrangements: with family Additional living arrangements comments: HUSB AND SON Gender identity (if verbalized by the patient): Female Sexual Orientation (if Verbalized by the Patient): Straight or Heterosexual Spiritual care concerns: No Agree to blood products: Yes Anes - Eval Final PreProcedure Day of Procedure 09/27/24 14:33 Patient weight: overweight Heart: regular rate and rhythm Lungs: clear to auscultation Airway: Mallampati scale class II Neurological: alert and oriented Last oral intake: >/= 8 hours ASA classification: III Emergent: no Anesthetic plan: proceed Anesthesia type and monitoring: general LMA and standard monitoring Results Review: All pre-operative results and documents have been reviewed as part of the pre- operative evaluation. Informed Consent: The patient's anesthetic plan and its attendant risks and benefits were discussed with the patient/family/POA. Questions were solicited and answers prov ided to the satisfaction of the patient/family/POA.
[2024-09-28] VITALS (8 sets, daily range): BP systolic 118–141; BP diastolic 68–81; PULSE 66–88; RESP 14–20; TEMP 36.1–36.4; O2SAT 96–100
--- NOTE | ~2024-09-28 | XR_ITS ---
EXAMINATION: XR surgery orthopedic DATE: 09/28/2024 11:24 INDICATION: Right foot arthrodesis TECHNIQUE: 2 fluoroscopic images of the right forefoot were obtained during procedure performed by Dr Archana Connell. Radiologist was not present for the imaging or procedure. The amount of fluoroscopy time used during this procedure was 0.2 minutes. Total DAP was 0.969 cGycm^2 COMPARISON: None. FINDINGS: Bunionectomy along the medial head of the first metatarsal. First metatarsophalangeal arthrodesis wit h compression screw and dorsal plate-screw fixation. Expected associated postoperative soft tissue sw elling and soft tissue gas. No fracture. Remaining joint spaces are normal. IMPRESSION: 1. Expected appearance post bunionectomy and instrumented first metatarsophalangeal arthrodesis. Reviewed, dictated and finalized at location B. GLASS BLOWER IMPRESSION: 1. Expected appearance post bunionectomy and instrumented first metatarsophalan geal arthrodesis.
--- NOTE | 2024-09-28 07:11 | WPDHPUPDATE1 ---
History and Physical Update Update Date/Time: 09/28/24 07:11 History and Physical has been reviewed, including an updated exam of the patient. There are NO changes in the patient's condition. Risks, benefits, and alternatives have been discussed and questions answered. Patient agrees to proceed with procedure.
[2024-09-28] MEDS: LACTATED RINGERS 1,000 ML 30 ML IV CONT (09:20)
[2024-09-28] MEDS: ceFAZolin 2 GM/D5W 50 ML 2 GM/50 ML BAG IVPB (10:32)
[2024-09-28] MEDS: LIDOCAINE 2% LOCAL INJ 20 ML VIAL 10 ML INFILTRATE (10:42)
--- NOTE | 2024-09-28 11:44 | P.OP_ITS ---
Procedure Note - Detailed Date of Procedure 09/28/24 Pre-op Diagnosis Arthritic Bunion Right Foot Post-op Diagnosis Same Procedure Performed Arthrodesis of the 1st Metatarsal Phalangeal Joint right foot Surgeon Shivam Connell Jr., DPM Anesthesia General and Local Indications Painful right forefoot Findings Joint degeneration noted to the 1st Metatarsal Phalangeal Joint Description of Procedure PROCEDURE IN DETAIL: Under mild sedation, the patient was brought into the operating room, placed on the operating table in supine position. A pneumatic ankle tourniquet was placed about the patient's ipsilateral ankle. Following general anesthesia and a local anesthetic block was performed to the right foot with 20cc's of 2% Lidocaine plain and 0.5% Marcaine plane with a Adrian block and a common peroneal nerve block proximally. The foot was then scrubbed, prepped, and draped in the usual aseptic manner. An Esmarch bandage was then used to exsanguinate the patient's foot and the pneumatic ankle tourniquet was then inflated. Surgery began in the following manner: Attention was directed to the dorsal medial aspect of the 1st metatarsophalangeal joint where there was a moderate subcutaneous prominence was noted. The incision was made starting along the central shaft of the 1st metatarsal and extending just proximal to the interphalangeal joint of the hallux. The incision was continued deep down through the subcutaneous tissues using sharp and blunt dissection. All bleeders were cauterized as necessary. At this point, the dissection was continued down to the level of the periosteum and capsular structures overlying the 1st metatarsophalangeal joint. A full length periosteum and capsular incision was made just medial to the extensor hallucis longus tendon. The periosteum and capsular structures were freed from the base of the proximal phalanx as well as the distal 1st metatarsal. At this point, the 1st metatarsophalangeal joint was identified. There was loss of articular cartilage to the head of the 1st metatarsal as well as the base of the proximal phalanx worse centrally and medially. There was significant broadening and hypertrophy of the 1st metatarsophalangeal joint. Utilizing a sagittal bone saw, the hypertrophied 1st metatarsal was resected dorsally, medially, and laterally. A power bur was used to make sure that there were no rough edges and also to further debrided the hypertrophic 1st metatarsal. Next, a rongeur was used to resect the hypertrophic base of the proximal phalanx. At this point, the reamer system for the Maxforce plate system was used to denude the degenerative cartilage from the head of the 1st metatarsal as well as the base of the proximal phalanx. The cartilage and subchondral bone were fully debrided utilizing the reamer system until healthy bleeding bone was noted. Next, a 2-0 drill bit was used to further fenestrate the head of the 1st metatarsal as well as the base of the proximal phalanx in order to allow fusion across the 1st metatarsophalangeal joint. Next, a guide wire for a 3.0 headless Arthrex compression screw was driven from the medial aspect of the base of the proximal phalanx into the head of the 1st metatarsal in order to serve as temporary fixation, next the cannulated screw was driven and provided excellent compression. Next A large steel plate was used to make sure that the hallux was in a rectus position both in the sagittal plane as well as the frontal plane. Excellent position of the hallux was noted. Next, a Maxforce plate was placed atop the 1st metatarsophalangeal joint held in position with [place] wires. Utilizing standard principles and techniques, the distal drill holes were drilled and three 3.0 mm mm fully-threaded locking screws were driven from dorsal to plantar holding the distal aspect of the plate intact. At this point, the Maxforce compression system was utilized from dorsal distal to proximal plantar across the 1st metatarsophalangeal joint with excellent compression noted. Next, a 3.0mm non locking locking screw was used to further compress the joint along the oblong dynamic compression screw slot. Next, the remaining proximal drill holes were drilled from dorsal to plantar across and one 3.0 mm locking screws were driven form dorsal to plantar. The wound site was then flushed with copious amounts of sterile saline. Fluoroscopy was used to make sure that the plate was appropriately aligned and oriented and also to make sure that the screws were of appropriate length and orientation. Excellent position of the 1st metatarsophalangeal joint was visualized in all planes. Next, the periosteum and capsular structures were reapproximated with 3-0 Vicryl. Next, the subcutaneous structures were reapproximated with 4-0 Vicryl. Next, the skin was reapproximated and coapted utilizing 4-0 Monocryl in running subcuticular suture fashion technique. Upon completion of the procedure, the incision was dressed with Steri-Strips, Adaptic, 4x4s, Kerlix, and Coban. The pneumatic ankle tourniquet was then deflated and a prompt hyperemic response was noted to all digits of the foot. A posterior splint was then applied to the affected lower extremity. It is important to note that Dr. Connell was present throughout the procedure. The patient did very well with the procedure and the anesthesia. The patient was transferred to the recovery room with vital signs stable and vascular status intact to all toes of the foot. Following a period of postoperative monitoring, the patient will be discharged home on the following written and oral postoperative instructions: 1. Keep the dressing clean, dry, and intact. 2. The patient to be strictly nonweightbearing with a knee scooter or crutches. 3. The patient should ice and elevate the foot when at rest. 4. The patient should contact Dr. Connell for all postop care and if any problems should arise. 5. Prescriptions were written for Percocet 5/325, dispensed 40 to be taken 1 p.o. q.4-6 hours as needed for severe pain. Furthermore, the patient should also take Xarelto 10 mg to be taken 1 p.o. daily starting 24 hours after surgery to prevent DVT for 14 days followed by one 325 mg aspirin until walking is re-initiated. Implants One Arthrex Maxforce Plate with 4 locking 3.0mm Screws one non locking screw One Arthrex Headless 3.5mm cannulated compression screw Estimated Blood Loss 1 Drains No Packing No Pathology None sent Complications No immediate complications Condition Stable Disposition Same day
== END 2024-09-28 13:21 | disposition home or self-care (01) ==
PROVIDERS: PCP Family Medicine; Visit Provider Podiatrist Foot & Ankle Surgery
PROC: (CPT 28750; principal; 2024-09-28 11:00)
DX: M21.611 Bunion of right foot (principal); M20.11 Hallux valgus (acquired), right foot; M19.071 Primary osteoarthritis, right ankle and foot; I12.9 Hypertensive chronic kidney disease with stage 1 through stage 4 chronic kidney disease, or unspecified chronic kidney disease; N18.30 Chronic kidney disease, stage 3 unspecified; E03.9 Hypothyroidism, unspecified; J45.909 Unspecified asthma, uncomplicated; E78.00 Pure hypercholesterolemia, unspecified; F32.A Depression, unspecified; G47.62 Sleep related leg cramps; D59.39 Other hemolytic-uremic syndrome; Z79.51 Long term (current) use of inhaled steroids; Z98.890 Other specified postprocedural states; Z90.49 Acquired absence of other specified parts of digestive tract; Z87.891 Personal history of nicotine dependence; Z86.018 Personal history of other benign neoplasm; Z80.9 Family history of malignant neoplasm, unspecified; Z82.49 Family history of ischemic heart disease and other diseases of the circulatory system
CPT/HCPCS: 28750; 99199; C1713; C1769; J0690; J2003; J2405; J2704; J3010; J7120

== ENCOUNTER 2024-11-22 16:08 | Outpatient (CLI) | payer OTHER, SELFPAY | END 2024-11-22 16:09 | disposition home or self-care (01) | PROVIDERS: PCP Family Medicine; Visit Provider Family Medicine | DX: N20.0 Calculus of kidney (principal) | CPT/HCPCS: 74019 ==

== ENCOUNTER 2024-11-29 15:00 | Outpatient (CLI) | payer OTHER, SELFPAY ==
--- NOTE | ~2024-11-29 | CT_ITS ---
CLINICAL INDICATION: Abdominal pain with nausea and vomiting, with history of right renal calculus COMPARISON: 04/15/2018. Reference is also made to a plain film evaluation of the abdomen, performed 11/22/2024 TECHNIQUE: Multiple contiguous axial images of the abdomen and pelvis were performed following the ad ministration of with 100 mL Omnipaque-350 intravenous contrast The dose-length product (DLP) was 518.28 mGy-cm. Automated exposure control and iterative reconstruction technique were employed. FINDINGS/OBSERVATIONS: Visualized lower thorax: The bilateral lung bases are clear. The heart is of normal size, without pericardial effusion. A moderate hiatal hernia is present. Liver: The liver demonstrates homogeneous enhancement and is not enlarged measuring 17 cm in longitudinal di mension. Gallbladder and biliary system: The gallbladder is only minimally distended, and otherwise unremarkable. Pancreas: The pancreas enhances homogeneously without ductal dilatation. Spleen: The spleen enhances homogeneously and is not enlarged measuring 8 cm in longitudinal dimension. Kidneys: Staghorn calculus is redemonstrated within the right kidney with right-sided hydroureteronep hrosis. The distal right ureter is not visualized beyond the sacrum. Within the right hemipelvis are multiple loops of small bowel along with a stable anastomosis of the colon representing a right hemicolectomy with an ileocolic anastomosis. The left kidney and ureter are unremarkable. Adrenal glands: Unremarkable. Gastrointestinal tract: Findings consistent with patient's right-sided hemicolectomy with an ileocolic anastomosis. Within the right hemipelvis is extensive fecal stasis within the remainder of the right colon at the level of the anastomosis. The distal colon is unremarkable. Appendix: Surgically absent. Vasculature: Unremarkable. Lymph nodes: No pathologically enlarged or morphologically suspicious lymph nodes within the retroperitoneum or at the root of the mesentery. Pelvic structures: The bladder is distended, and otherwise unremarkable. The uterus is either surgically absent or markedly atrophic. Body wall and musculoskeletal: Complex fat-containing periumbilical hernia. Fat-containing right inguinal hernia. 13 mm of anterolisthesis of L5 onto S1 is identified. This is largely unchanged from 2018 examination . IMPRESSION: Staghorn right renal calculus with hydroureteronephrosis extending to the level of the sacrum with po or visualization of the distal right ureter. Significant fecal stasis at the level of the anastomosis within the proximal colon. Moderate hiatal hernia. Fat-containing periumbilical and right inguinal hernia. Reviewed, dictated and finalized at location A. GENCY MANAGEMENT DIRECTOR IMPRESSION: Staghorn right renal calculus with hydroureteronephrosis extending to the level of the sacrum with poor visualization of the distal right ureter. Significant fecal stasis at the level of the anastomosis within the proximal co melissa. Moderate hiatal hernia. Fat-containing periumbilical and right inguinal hernia.
[2024-11-29 15:29] LABS: Estimated Glomerular Filt Rate 38
== END 2024-11-29 15:01 | disposition home or self-care (01) ==
PROVIDERS: PCP Family Medicine; Visit Provider Family Medicine
DX: K44.9 Diaphragmatic hernia without obstruction or gangrene (principal); N20.0 Calculus of kidney; K40.90 Unilateral inguinal hernia, without obstruction or gangrene, not specified as recurrent
CPT/HCPCS: 74177; Q9967

== ENCOUNTER 2025-07-04 14:23 | Outpatient (CLI) | payer OTHER, SELFPAY ==
--- NOTE | ~2025-07-04 | XR_ITS ---
EXAMINATION: XR abdomen/kub 1V DATE: 07/04/2025 14:52 INDICATION: Kidney stone TECHNIQUE: A supine view of the abdomen on 2 radiographs was obtained. COMPARISON: Radiographs dated 11/22/[address] dated 11/29/2024 FINDINGS: Previously seen large staghorn calculus the right kidney is no longer visualized suggesting interval extraction. No new stones seen at the expected location of the bilateral kidneys were ureters. Unchanged pattern of a few phleboliths in the pelvis. Couple small sclerotic bone islands at the proximal left femur. Lung bases are clear. Heart size normal. Normal bowel gas pattern. Moderate lumbar spondylosis. IMPRESSION: 1. Interval extraction of a large right renal staghorn calculus. No evident residual urolithiasis. Reviewed, dictated and finalized at location A. IMPRESSION: 1. Interval extraction of a large right renal staghorn calculus. No evident res idual urolithiasis.
== END 2025-07-04 14:24 | disposition home or self-care (01) ==
PROVIDERS: PCP Family Medicine; Visit Provider Urology
DX: N20.0 Calculus of kidney (principal)
CPT/HCPCS: 74018